=== PATIENT | female | born 1995 | race Two or more races ===

== ENCOUNTER 2019-04-24 06:34 | Inpatient (IN) | payer OTHER ==
[2019-04-24 07:00] LABS: APPEARANCE,URINE SLIGHTLY-CLOUDY; BILIRUBIN,URINE NEGATIVE (NEGATIVE); COLOR,URINE YELLOW; GLUCOSE, URINE NEGATIVE (NEGATIVE); KETONES,URINE NEGATIVE (NEGATIVE); LEUKOCYTE ESTERASE,URINE NEGATIVE (NEGATIVE); NITRITE,URINE NEGATIVE (NEGATIVE); PROTEIN,URINE NEGATIVE (NEGATIVE); UROBILINOGEN,URINE NEGATIVE mg/dL (<2.0)
[2019-04-24 07:25] LABS: URINE AMPHETAMINES SCREEN NEGATIVE; URINE BARBITURATES SCREEN NEGATIVE; URINE BENZODIAZEPINES SCREEN NEGATIVE; URINE COCAINE SCREEN NEGATIVE; URINE MARIJUANA (THC) SCREEN NEGATIVE; URINE METHADONE SCREEN NEGATIVE; URINE PHENCYCLIDINE SCREEN NEGATIVE
[2019-04-24] MEDS ORDERED: MISOPROSTOL 0.2 MG TABLET ONE (07:47)
[2019-04-24] MEDS ORDERED: LIDOCAINE 1% INJ-PF (10 MG/ML) 30 ML SDV ONE (07:47)
[2019-04-24] MEDS ORDERED: OXYTOCIN 10 UNIT/ML VIAL ONE (07:47)
[2019-04-24] MEDS ORDERED: OXYTOCIN/NORMAL SALINE 20 UNIT/1,000 ML RTUINJ ONE (07:48)
[2019-04-24] MEDS ORDERED: RINGERS SOLUTION,LACTATED 1,000 ML IV PRN ×2 (09:09→09:10)
[2019-04-24 10:12] LABS: ABSOLUTE LYMPHOCYTES (AUTO) 1.3 10^3/uL (0.5-4.7); ABSOLUTE MONOCYTES (AUTO) 0.6 10^3/uL (0.1-1.4); ABSOLUTE NEUT (AUTO) 8.9 10^3/uL (1.7-8.2); BASOPHILS % (AUTO) 0.3 % (0-2); EOSINOPHILS % (AUTO) 0.1 % (0-6); HEMATOCRIT 36.1 % (36.0-47.0); HEMOGLOBIN 12.8 g/dL (12.0-15.5); MEAN CORPUSCULAR HEMOGLOBIN 34.1 pg (27.0-33.4); MEAN CORPUSCULAR HGB CONC 35.5 g/dL (32.0-36.0); MEAN CORPUSCULAR VOLUME 96 fl (80-97); PLATELET COUNT 199 10^3/uL (150-450); RED BLOOD COUNT 3.75 10^6/uL (3.72-5.28); RED CELL DISTRIBUTION WIDTH 14.1 % (11.5-14.0); SEGMENTED NEUTROPHILS % (AUTO) 81.6 % (42-78); TOTAL CELLS COUNTED % (AUTO) 100 %; WHITE BLOOD COUNT 10.9 10^3/uL (4.0-10.5)
[2019-04-24] MEDS ORDERED: LIDOCAINE 2% JELLY 5 ML TUBE ONE (14:14)
[2019-04-24] MEDS ORDERED: OXYTOCIN/NORMAL SALINE 20 UNIT/1,000 ML RTUINJ IV PRN (15:22)
[2019-04-24] MEDS ORDERED: ZOLPIDEM TARTRATE 5 MG TABLET PO PRN (15:22)
[2019-04-24] MEDS ORDERED: DIBUCAINE 1% OINTMENT 28 GM TP PRN (15:22)
[2019-04-24] MEDS ORDERED: DIPH/PERTUSS(ACELL)/TETANUS VAC/PF 0.5 ML SYR (>=10YO) IM PRN (15:22)
[2019-04-24] MEDS ORDERED: MEASLES,MUMPS&RUBELLA VACC/PF 0.5 ML VIAL SUBCUT PRN (15:22)
[2019-04-24] MEDS ORDERED: BENZOCAINE/MENTHOL AEROSOL SPRAY 56 ML ONE (15:22)
[2019-04-24] MEDS ORDERED: BENZOCAINE/MENTHOL AEROSOL SPRAY 56 ML TOP PRN (15:22)
[2019-04-24] MEDS ORDERED: IBUPROFEN 800 MG TABLET ONE (16:21)
[2019-04-24] MEDS: IBUPROFEN 800 MG TABLET PO SCH (16:25)
--- NOTE | 2019-04-24 17:01 | Delivery Summary ---
Del Sum A-C Datetime Report Generated by CPN: 04/24/2019 17:01 DELIVERY PERSONNEL DELIVERY PERSONNEL: [id number] Nurse Family Service Caseworker Certified:: Nancy Gamboa CNM Labor and Delivery Nurse:: Anisa Juares RNbiomedical repair technician Nurse:: Sonia Nix RN Salesforce Business Analyst/JUNIOR BRAND MANAGER: Sweetie Mosher, WEATHERIZATION COORDINATOR Additional Personnel: : Jade Lopez RN MATERNAL INFORMATION Delivery Anesthesia: None Medications After Delivery: Pitocin Drip 20 Units/1000ml NSS Delivery QBL: 400 Maternal Complications: None Provider Comments: of VMI, delivered CHEN, loose NC present, easily delivered. Baby boy, vigorous and crying- placed on pts abdoman. Cord clamped and cut after one minute. cord blood collected. Placenta delivered S/C/I, FF w/ decrease lochia, IV pitocin infusing. QBL 200 ml. Vaginal repair completed. Mother and baby are skin to skin in stable condition. She plans to breastfeed. Attending MD is Dr Mclean LABOR SUMMARY EDC: 05/03/2019 00:00 No. Babies in Womb: 1 Attempted: No Labor Anesthesia: None LABOR INFORMATION Reason for Induction: Not Applicable Onset of Labor: 04/24/2019 09:21 Complete Dilatation: 04/24/2019 13:29 Oxytocin: N/A Group B Beta Strep: negative Antibiotics # of Doses: 0 Antibiotics Time of Last Dose: N/A Name of Antibiotic Given: N/A Steroids Given: None Reason Steroids Not Administered: Not Applicable MEMBRANES Membranes Rupture Method: Artificial Rupture of Membranes: 04/24/2019 13:13 Length of Rupture (hr): 1.25 Amniotic Fluid Color: Clear Amniotic Fluid Amount: None Amniotic Fluid Odor: None STAGES OF LABOR Stage 1 hr: 4 Stage 1 min: 8 Stage 2 hr: 0 Stage 2 min: 59 Stage 3 hr: 0 Stage 3 min: 4 Total Time in Labor hr: 5 Total Time in Labor min: 11 VAGINAL DELIVERY Episiotomy: None Laceration #1: Vaginal Laceration Extension #1: First Degree Other Laceration: Small [place]-urethral laceration was hemostatic. Laceration Repair: Yes Laceration Repair Note: Left labial laceration w/ walnut sized hematoma noted after delivery, stable and not expanding. Figure of eight stitch placed using 3.0 vicryl. 1% lidocaine used to numb the area first. Sponge Count Correct: Yes Sharps Count Correct: Yes CSECTION DELIVERY Primary Indication: N/A Secondary Indication: N/A CSection Incidence: N/A Labor: N/A Elective: N/A CSection Incision: N/A BABY A INFORMATION Infant Delivery Date/Time: 04/24/2019 14:28 Method of Delivery: Vaginal Nurse Controlled Delivery: No Born in Route : No : N/A Forceps: N/A Vacuum Extraction: N/A Shoulder Dystocia : No PRESENTATION/POSITION BABY A Presentation: Cephalic Cephalic Presentation: Vertex Vertex Position: Left Occipital Anterior Breech Presentation: N/A PLACENTA INFORMATION BABY A Placenta Delivery Time : 04/24/2019 14:32 Placenta Method of Delivery: Spontaneous Placenta Status: Delivered SCORES BABY A Heart Rate 1 min: >100 bpm Resp Effort 1 min: Good Cry Reflex Irritability 1 min: Cough or Sneeze or Pulls Away Muscle Tone 1 min: Active Motion Color 1 min: Body [place], Extremities Blue Resuscitation Effort 1 min: Tactile Stimulation SCORE 1 MIN: 9 Heart Rate 5 min: >100 bpm Resp Effort 5 min: Good Cry Reflex Irritability 5 min: Cough or Sneeze or Pulls Away Muscle Tone 5 min: Active Motion Color 5 min: Body [place], Extremities Blue Resuscitation Effort 5 min: N/A SCORE 5 MIN: 9 INFANT INFORMATION BABY A Gestational Age at Delivery: 38.5 Gestational Status: Early Term- 37- 38.6 Weeks Outcome : Liveborn Infant Condition : Stable Sex: Male IDENTIFICATION BABY A Verification Date/Time: 04/24/2019 15:15 ID Band Number: [id number] Mother's Name Verified: Yes Infant RN Verifying : Juan Juares RN, MAmerico Nix RN WEIGHT/LENGTH BABY A Infant Birthweight (gm): 2985 Weight (lb): 6 Infant Weight (oz): 9 Length (in): 18.75 Length (cm): 47.63 CORD INFORMATION BABY A No. Cord Vessels: 3 Nuchal Cord : Around Neck x1, Loose Cord Blood Taken: Yes-For Eval (Mom's Blood Type - or O+) Infant Suction: Mouth ASSESSMENT BABY A Skin to Skin: Yes Skin to Skin Time (min): 30 BABY B INFORMATION : N/A SIGNATURES Assignment: Candis Mclean MD Signature: with User ID: Olegario : with User ID: [email or web address]
[2019-04-24] MEDS: FERROUS SULFATE 325 MG TABLET PO SCH (18:03)
[2019-04-24] MEDS: DOCUSATE SODIUM 100 MG CAPSULE PO SCH (18:03)
[2019-04-25] MEDS: ACETAMINOPHEN WITH CODEINE #3 TABLET PO PRN (04:10)
[2019-04-25] MEDS: IBUPROFEN 800 MG TABLET PO SCH ×4 (06:05→22:25)
[2019-04-25 07:29] LABS: HEMATOCRIT 31.8 % (36.0-47.0); HEMOGLOBIN 11.1 g/dL (12.0-15.5); MEAN CORPUSCULAR HGB CONC 34.9 g/dL (32.0-36.0); MEAN CORPUSCULAR VOLUME 98 fl (80-97); PLATELET COUNT 180 10^3/uL (150-450); RED BLOOD COUNT 3.26 10^6/uL (3.72-5.28); RED CELL DISTRIBUTION WIDTH 13.7 % (11.5-14.0); WHITE BLOOD COUNT 14.1 10^3/uL (4.0-10.5)
[2019-04-25] MEDS: SENNOSIDES/DOCUSATE 8.6-50 MG 1 EACH TABLET PO SCH (09:14)
[2019-04-25] MEDS: DOCUSATE SODIUM 100 MG CAPSULE PO SCH ×2 (09:14→17:51)
[2019-04-25] MEDS: PRENATAL VITAMIN W DHA CAPSULE PO SCH (09:14)
[2019-04-25] MEDS: FERROUS SULFATE 325 MG TABLET PO SCH ×2 (09:14→17:51)
--- NOTE | 2019-04-25 11:05 | PDOC PROGRESS REPORT ---
Subjective-OB Progress Note for:: 04/25/19 Subjective: reports bleeding slowing, pain controlled with current meds. denies needs Physical Exam (OB) Vital Signs: Temp Pulse Resp BP Pulse Ox 98.1 F 73 16 97/50 L 99 04/25/19 07:40 04/25/19 07:40 04/25/19 07:40 04/25/19 07:40 04/25/19 07:40 Intake & Output 04/24/19 04/25/19 04/26/19 06:59 06:59 06:59 Intake Total 1100 Output Total 1 Balance 1099 Weight 56.5 kg - Abdomen Description: Soft, Flat Hernia Present: No Fundal Description: Firm, Midline Fundal Height: u/u - u/2 - Abdominal Distension: No distension Tenderness: Nontender - Extremities Lower extremities: Thomas's sign - neg Calf: Normal, Nontender Objective-Diagnostic Laboratory: 04/25/19 06:52 04/25/19 06:52 WBC 14.1 H RBC 3.26 L Hgb 11.1 L Hct 31.8 L MCV 98 H MCH 34.0 H MCHC 34.9 RDW 13.7 Plt Count 180 Assessment and Plan(PN) - Time Spent with Patient Time with patient: Less than 15 minutes Medications reviewed and adjusted accordingly: Yes - Disposition Anticipated Discharge: Home Within: within 24 hours
[2019-04-26] MEDS: ACETAMINOPHEN WITH CODEINE #3 TABLET PO PRN (04:09)
[2019-04-26] MEDS: IBUPROFEN 800 MG TABLET PO SCH ×2 (05:32→14:43)
[2019-04-26 08:10] VITALS: BP 105/58
[2019-04-26] MEDS: DOCUSATE SODIUM 100 MG CAPSULE PO SCH (09:12)
[2019-04-26] MEDS: SENNOSIDES/DOCUSATE 8.6-50 MG 1 EACH TABLET PO SCH (09:12)
[2019-04-26] MEDS: FERROUS SULFATE 325 MG TABLET PO SCH (09:12)
[2019-04-26] MEDS: PRENATAL VITAMIN W DHA CAPSULE PO SCH (09:12)
--- NOTE | 2019-04-26 12:35 | PDOC DISCHARGE SUMMARY ---
Impression - Admit/DC Date/PCP Admission Date/Primary Care Provider: 04/24/19 07:48 YELITZA WADE MD Discharge Date: 04/26/19 - Discharge Diagnosis (1) Hematoma of labia majora Is this a current diagnosis for this admission?: Yes (2) Normal vaginal delivery Is this a current diagnosis for this admission?: Yes - Assessment Summary: pt s/p normal spontaneous vaginal delivery ppd2. No concerns, denies s/s of pre- e, will present to the office on Wednesday for hematoma recheck. On exam it looks to be resolving but there is some bruising. Warning s/s reviewed. Pt verbalized understanding. - Additional Information Discharge Diet: As Tolerated, Regular Discharge Activity: Activity As Tolerated, Balance Activity w/Rest, No Lifting Over 10 Pounds, Pelvic Rest, No tub bath, Walk Frequently Referrals: [facility] [Provider Group] Prescriptions: Ibuprofen [Motrin 800 mg Tablet] 800 mg PO Q8HP PRN #30 tablet PRN Reason: For Pain Scale 1-3 Benzocaine/Menthol [Dermoplast Aerosol [place] 56 ml] 1 applic TOP PRN PRN #1 can PRN Reason: Home Medications: Vits96/Iron Fum/Folic [ Tablet] 1 tab PO DAILY 04/24/19 Benzocaine/Menthol [Dermoplast Aerosol [place] 56 ml] 1 applic TOP PRN PRN #1 can 04/26/19 Ibuprofen [Motrin 800 mg Tablet] 800 mg PO Q8HP PRN #30 tablet 04/26/19 Results Laboratory Results: WBC 14.1 10^3/uL (4.0-10.5) H 04/25/19 06:52 RBC 3.26 10^6/uL (3.72-5.28) L 04/25/19 06:52 Hgb 11.1 g/dL (12.0-15.5) L 04/25/19 06:52 Hct 31.8 % (36.0-47.0) L 04/25/19 06:52 MCV 98 fl (80-97) H 04/25/19 06:52 MCH 34.0 pg (27.0-33.4) H 04/25/19 06:52 MCHC 34.9 g/dL (32.0-36.0) 04/25/19 06:52 RDW 13.7 % (11.5-14.0) 04/25/19 06:52 Plt Count 180 10^3/uL (150-450) 04/25/19 06:52 Lymph % (Auto) 12.0 % (13-45) L 04/24/19 09:50 [place] % (Auto) 6.0 % (3-13) 04/24/19 09:50 Eos % (Auto) 0.1 % (0-6) 04/24/19 09:50 Baso % (Auto) 0.3 % (0-2) 04/24/19 09:50 Absolute Neuts (auto) 8.9 10^3/uL (1.7-8.2) H 04/24/19 09:50 Absolute Lymphs (auto) 1.3 10^3/uL (0.5-4.7) 04/24/19 09:50 Absolute Monos (auto) 0.6 10^3/uL (0.1-1.4) 04/24/19 09:50 Absolute Eos (auto) 0.0 10^3/uL (0.0-0.6) 04/24/19 09:50 Absolute Basos (auto) 0.0 10^3/uL (0.0-0.2) 04/24/19 09:50 Seg Neutrophils % 81.6 % (42-78) H 04/24/19 09:50 Urine Color YELLOW 04/24/19 06:43 Urine Appearance SLIGHTLY-CLOUDY 04/24/19 06:43 Urine pH 6.0 (5.0-9.0) 04/24/19 06:43 Ur Specific [place] 1.020 04/24/19 06:43 Urine Protein NEGATIVE mg/dL (NEGATIVE) 04/24/19 06:43 Urine Glucose (UA) NEGATIVE mg/dL (NEGATIVE) 04/24/19 06:43 Urine Ketones NEGATIVE mg/dL (NEGATIVE) 04/24/19 06:43 Urine Blood SMALL (NEGATIVE) H 04/24/19 06:43 Urine Nitrite NEGATIVE (NEGATIVE) 04/24/19 06:43 Urine Bilirubin NEGATIVE (NEGATIVE) 04/24/19 06:43 Urine Urobilinogen NEGATIVE mg/dL (<2.0) 04/24/19 06:43 Ur Leukocyte Esterase NEGATIVE (NEGATIVE) 04/24/19 06:43 Urine Ascorbic Acid NEGATIVE (NEGATIVE) 04/24/19 06:43 Urine Opiates Screen NEGATIVE 04/24/19 06:43 Urine Methadone Screen NEGATIVE 04/24/19 06:43 Ur Barbiturates Screen NEGATIVE 04/24/19 06:43 Ur Phencyclidine Scrn NEGATIVE 04/24/19 06:43 Ur Amphetamines Screen NEGATIVE 04/24/19 06:43 U Benzodiazepines Scrn NEGATIVE 04/24/19 06:43 Urine Cocaine Screen NEGATIVE 04/24/19 06:43 U Marijuana (THC) Screen NEGATIVE 04/24/19 06:43 RPR NONREACTIVE (NONREACTIVE) 04/24/19 09:50 Blood Type O POSITIVE 04/24/19 09:50 Antibody Screen NEGATIVE 04/24/19 09:50
== END 2019-04-26 16:45 | disposition home or self-care (01) | DRG 806 ==
LOC: LC 06:34 → LR 07:48 → 2S 16:50
PROVIDERS: ADMIT Obstetrics & Gynecology; ATTEND Obstetrics & Gynecology
PROC: 10E0XZZ Delivery of Products of Conception, External Approach (ICD-10-PCS; principal; 2019-04-24)
PROC: 0HQ9XZZ Repair Perineum Skin, External Approach (ICD-10-PCS; 2019-04-24)
PROC: 10907ZC Drainage of Amniotic Fluid, Therapeutic from Products of Conception, Via Natural or Artificial Opening (ICD-10-PCS; 2019-04-24)
PROC: 3E0234Z Introduction of Serum, Toxoid and Vaccine into Muscle, Percutaneous Approach (ICD-10-PCS; 2019-04-24)
DX: O69.81X0 Labor and delivery complicated by cord around neck, without compression, not applicable or unspecified (principal); O71.7 Obstetric hematoma of pelvis; Z37.0 Single live birth; O71.82 Other specified trauma to perineum and vulva; O70.0 First degree perineal laceration during delivery; Z3A.38 38 weeks gestation of pregnancy; Z23 Encounter for immunization
CPT/HCPCS: 36415; 80307; 81005; 85025; 85027; 86592; 86850; 86900; 86901; 94760; J2590; J3490